=== PATIENT | female | born 1945 | race Caucasian/White ===

== ENCOUNTER 2017-06-25 12:03 | Observation (INO) | payer OTHER, MEDICARE ==
[~2017-06-25] VITALS: Ht 163.8 cm; Wt 103.0 kg
[~2017-06-25 12:03] MED LIST: CALCIUM 600 +1 EAC4 PO; CINNAMON BARK500 MG PO; CRANBERRY TABL1 EACH PO; DICLOFENAC SOD100 MG PO; DILAUDID2 MG PO; ESCITALOPRAM OXA5 MG PO; FLEXERIL10 MG PO; KRILL OIL500 MG PO; LEVOTHYROXINE200 MC1 PO; LEXAPRO5 MG PO; MULTIPLE VITAM1 EACH PO; OMEPRAZOLE40 M1 PO; RESTASIS 01 DROP/0.4 BOTH EYES; SUPER B-50 COM1 EACH PO; SYNTHROID200 MCG PO; TRAMADOL HCL50 MG PO; VITAMIN B-6250 MG PO; VITAMIN B122500 MCG PO; VITAMIN D-3 401 EACH PO; VOLTAREN75 MG PO
[2017-06-25 12:49] LABS: HEMATOCRIT 40.9 % (36.0-46.0); MCH 29.5 PG (29.0-34.0); MCHC 33.7 G/DL (30.0-36.0); MCV 87.4 FL (83-99); MEAN PLAT.VOLUME 10.7 uM^3 (9.5-12.4); PLATELET COUNT 197 K/uL (156-360); RBC DIS.WIDTH-CV 12.9 % (11.8-14.6); RBC DIS.WIDTH-SD 41.2 % (39-53); RED BLOOD COUNT 4.68 M/uL (3.80-5.20); WHITE BLOOD COUNT 7.4 K/uL (4.1-10.2)
[2017-06-25 13:01] LABS: CHLORIDE 106 mEq/L (99-109); POTASSIUM 4.2 mEq/L (3.7-5.4); SODIUM 140 mEq/L (136-147)
[2017-06-25 13:03] LABS: GLUCOSE 99 mg/dL (70-99)
[2017-06-25 13:04] LABS: ANION GAP 12 MEQ/L (2-14)
[2017-06-25 13:07] LABS: GFR ESTIMATE (CALCULATED) > 59 mL/min/; UREA NITROGEN (BUN) 18 mg/dL (9-23)
[2017-06-25 13:10] LABS: TROP-I INTERPRETATION NEGATIVE; TROPONIN-I < 0.01 ng/mL (0.0-0.30)
[2017-06-25 15:23] VITALS: BP 153/68
[2017-06-25] MEDS ORDERED: LEXAPRO10 MG PO (15:58)
[2017-06-25 19:41] LABS: TROP-I INTERPRETATION NEGATIVE; TROPONIN-I < 0.01 ng/mL (0.0-0.30)
[2017-06-25 20:00] VITALS: BP 142/85
[2017-06-26] VITALS: BP 128/59
[2017-06-26 00:58] LABS: TROP-I INTERPRETATION NEGATIVE; TROPONIN-I < 0.01 ng/mL (0.0-0.30)
[2017-06-26 04:00] VITALS: BP 146/71
[2017-06-26 07:24] VITALS: BP 175/74
[2017-06-26 11:42] VITALS: BP 151/76
== END 2017-06-26 15:45 | disposition home or self-care (01) ==
LOC: EME 12:03 → EDOF 14:01 → ENRESERV 14:24 → 5WEST 15:15 → ENPENDDIS 06-26 → 5WEST 06-26 15:45
PROVIDERS: Internal Medicine; Nurse Practitioner Adult Health
DX: R07.89 Other chest pain (principal); R94.31 Abnormal electrocardiogram [ECG] [EKG]; I27.2 Other secondary pulmonary hypertension; R06.09 Other forms of dyspnea; Z87.891 Personal history of nicotine dependence; Z85.850 Personal history of malignant neoplasm of thyroid; K21.9 Gastro-esophageal reflux disease without esophagitis; Z82.3 Family history of stroke; Z88.2 Allergy status to sulfonamides; Z88.6 Allergy status to analgesic agent; Z88.5 Allergy status to narcotic agent
CPT/HCPCS: 71020; 80048; 83880; 84484; 85027; 85379; 93005; 93306; 99281; 99285; G0378; J1650; J7030